=== PATIENT | female | born 1945 | race African-American/Black ===

== ENCOUNTER → 2016-10-30 | Outpatient (CLI) | payer OTHER ==
[~2016-10-30] MED LIST: ACETAMINOPHEN325 MG PO; BISACODYL SUPP10 MG RECTAL; CALCIUM 600 +1 EAC1 PO; COLACE100 MG PO; DIPHENHYDRAMINE25 M3 PO; ERYTHROMYCIN E3.5 G1 OP; GAVISCON LIQUI355 ML PO; HYDROCODON-ACE1 EAC7 PO; MOBIC15 MG PO; MOBIC7.5 MG PO; NORCO 10-325 T1 EACH PO; SENNA8.6 MG PO; TUMS PO; VITAMIN D1000 UNIT PO; XARELTO10 MG PO
== END ==
LOC: RAD 03:40
DX: Z12.31 Encounter for screening mammogram for malignant neoplasm of breast (principal)

== ENCOUNTER → 2017-10-15 | Outpatient (CLI) | payer OTHER | LOC: RAD 11:28 | DX: Z12.31 Encounter for screening mammogram for malignant neoplasm of breast (principal); M81.0 Age-related osteoporosis without current pathological fracture ==

== ENCOUNTER → 2018-11-25 | Outpatient (CLI) | payer OTHER | LOC: RAD 08:53 | DX: Z12.31 Encounter for screening mammogram for malignant neoplasm of breast (principal) ==

== ENCOUNTER → 2020-02-22 | Outpatient (CLI) | payer OTHER | LOC: CAT 10:10 | PROVIDERS: ATTEND Neuromusculoskeletal Medicine & OMM | DX: K80.20 Calculus of gallbladder without cholecystitis without obstruction (principal) ==

== ENCOUNTER → 2020-08-17 | Outpatient (CLI) | payer OTHER ==
[2020-08-17 08:42] LABS: ABSOLUTE NEUTROPHILS 2.2 thou/uL (1.4-8.2); BASOPHILS 0.9 % (0.0-2.0); EOSINOPHILS 5.6 % (0.0-3.0); HEMATOCRIT 36.2 % (37.0-47.0); MCH 28.1 pg (26.0-34.0); MCHC 33.3 g/dL (28.0-37.0); MCV 84.3 fL (80.0-100.0); MONOCYTES 6.8 % (1.0-8.0); PLATELET COUNT 293 thou/uL (150-400); POLYS 48.7 % (36.0-66.0); RBC 4.29 mil/uL (4.20-5.00); WBC 4.6 thou/uL (4.0-11.0)
[2020-08-17 09:01] LABS: CHOLESTEROL 195 mg/dL (<200); HDL CHOLESTEROL 90 mg/dL (>40); LDL CHOLESTEROL 91 mg/dL (<100); TC:HDL 2.2 Ratio (Not establshd); TRIGLYCERIDE 74 mg/dL (<150); VLDL 15 mg/dL (<40)
[2020-08-18 00:06] LABS: GLYCOHEMOGLOBIN (HGB A1C) 5.9 % (4.8-5.6)
== END ==
LOC: RAD 08:06
PROVIDERS: ATTEND Neuromusculoskeletal Medicine & OMM
DX: Z12.31 Encounter for screening mammogram for malignant neoplasm of breast (principal); M19.011 Primary osteoarthritis, right shoulder; M41.86 Other forms of scoliosis, lumbar region; M48.02 Spinal stenosis, cervical region; M47.817 Spondylosis without myelopathy or radiculopathy, lumbosacral region; M53.87 Other specified dorsopathies, lumbosacral region; M53.82 Other specified dorsopathies, cervical region; M47.812 Spondylosis without myelopathy or radiculopathy, cervical region; E11.9 Type 2 diabetes mellitus without complications; E04.2 Nontoxic multinodular goiter; M54.5 Low back pain; M48.07 Spinal stenosis, lumbosacral region; I70.0 Atherosclerosis of aorta; Z79.899 Other long term (current) drug therapy

== ENCOUNTER → 2020-08-28 | Outpatient (CLI) | payer OTHER | LOC: MRI 10:04 | PROVIDERS: ATTEND Neuromusculoskeletal Medicine & OMM | DX: M47.22 Other spondylosis with radiculopathy, cervical region (principal); M25.78 Osteophyte, vertebrae; M48.02 Spinal stenosis, cervical region; M50.21 Other cervical disc displacement, high cervical region ==